=== PATIENT | female | born 1960 | race Caucasian/White ===

== ENCOUNTER 2023-11-27 16:58 | Emergency (ER) | payer BC, SELFPAY ==
[2023-11-27 17:04] VITALS: BP 166/91; BMI 19.8
--- NOTE | 2023-11-27 18:03 | ED.GENMED ---
Addendum entered and electronically signed by Brayan Patricia DO 12/07/23 15:46:
CLARIFICATION OF DIAGNOSIS: Periorbital edema of LEFT eye, conjunctivitis
Original Note:
History of Present Illness
General
Chief Complaint: Eye Problems
Time Seen by Provider: 11/27/23 18:03
History of Present Illness
History of Present Illness:
HPI: The patient presents with concerns at the left eye. She was diagnosed with corneal ulcer and treated with drops and then steroids. That improved but then she developed periorbital edema and was placed by her regulation supervisor on Augmentin that she
has had 48 hours of antibiotics. She was encouraged to come to the emergency department for further evaluation at that time as there was some concern for pupil abnormality.
EXAM:
GENERAL: Well appearing in no distress
HEENT: Moist oral mucosa, pupils are equally reactive directly and consensually, there is no evidence of orbital or periorbital cellulitis on examination however there is a mild left-sided periorbital edema
NEUROLOGIC: Excellent strength all extremities, no coordination deficits, normal finger-nose test
PSYCHIATRIC: Appropriate mental status, normal insight and judgement
EXTREMITIES: Nontender, no edema, moves all extremities equally
SKIN: No rash, no lesions
TIME OF INITIAL ENCOUNTER: 6:20 PM
NUMBER AND COMPLEXITY OF PROBLEMS ADDRESSED AT THE ENCOUNTER
� Chronic conditions affecting care: High blood pressure
� Acute Exacerbation and/or Progression of Chronic Illness: This is an acute problem
� Differential Diagnosis includes: Allergic reaction, related to treatment of corneal ulcer such as reaction to the drops no clear evidence for periorbital cellulitis based on physical examination, there is no pain with movement
of the extraocular muscles therefore doubt orbital cellulitis and she is afebrile
AMOUNT AND/OR COMPLEXITY OF DATA TO BE REVIEWED AND ANALYZED
� I performed an independent evaluation of and my interpretation is:
EKG:
CT:
X-rays:
Laboratory Studies:
Other:
� Review of other/old records: The patient was here in 2013 admitted for anemia
� Clinical information was obtained by an independent historian: None needed
� Prescriptions/Medications Considered but not given:
� Further testing considered but not performed: Considered admission for IV antibiotics as suggested by the regulation supervisor according to the primary however the patient is not really interested in any further evaluation as I am not
seeing any clear signs of need for IV antibiotics on physical examination.
RISK OF COMPLICATIONS AND/OR MORBIDITY OR MORTALITY OF PATIENT MANAGEMENT
� Social determinants of health affecting care: Lives at home
� Discussion with other providers:
� Escalation of care including admission/observation vs risk of discharge considered: We also talked about trying antihistamines and she will continue cool compresses. No evidence of orbital or periorbital cellulitis on
examination. I also suggest that she follows up with an business affairs manager.
Past History
Past History
ED Past Medical History: HTN
ED Past Surgical History: Gynecological
Social History
Tobacco: Non-smoker
Drug: None
Personal:
Phy Exam
Physical Exam
Physical Exam:
See HPI
Course
Vital Signs
Initial and Last Documented VS:
Initial Vital Signs
Temp Pulse Resp BP Pulse Ox
98.6 F 74 16 166/91 99
11/27/23 17:04 11/27/23 17:04 11/27/23 17:04 11/27/23 17:04 11/27/23 17:04
Last Documented Vital Signs
Temp Pulse Resp BP Pulse Ox
98.6 F 74 16 166/91 99
11/27/23 17:04 11/27/23 17:04 11/27/23 17:04 11/27/23 17:04 11/27/23 17:04
*Critical Care Note
Total Time (30-74mins, 75-104mins- exclusive of procedures): Not Applicable
ED Attending Note
-
Portions of this chart may have been created with voice recognition software.� Occasional wrong word or��sound alike� substitutions may have occurred due to the inherent limitations of voice recognition software.
Discharge Plan
Departure
Patient Disposition: Home (Routine Discharge)
Date of Disposition: 11/27/23
Time of Disposition: 18:16
Patient with high blood pressure during this ER visit?: Yes
Discharge Problem:
Periorbital edema of right eye, Conjunctivitis
Prescriptions:
No Action
fluconazole 150 MG tablet
150 mg PO DAILY Qty: 1 0RF
amoxicillin-pot clavulanate 1 TABLET tablet
1 tab PO Q12 Qty: 10 0RF
Referrals:
Jac Carlson MD [Active] - Follow up in 2-3 days
Activity Restrictions/Additional Instructions:
I do not see any clear signs of periorbital cellulitis or orbital cellulitis on physical examination at this time. Your temperature is normal. Continue Augmentin. I have also given the contact information for a local business affairs manager but you could
also check with the group that your regulation supervisor is with and see if they want to have an business affairs manager evaluate you as well. Your pupils are reacting appropriately.
Interventions
Interventions:
*Risk Screen - Suicide Last Done: 11/27/23 17:04
*General Assessment Last Done: 11/27/23 17:58
*Neglect/Abuse Screening Last Done: 11/27/23 17:04
*ED COVID-19 Vaccine History Last Done: 11/27/23 17:58
Discharge Date and Time
Print Language: GEORGIAN
== END 2023-11-27 18:37 | disposition home or self-care (01) ==
LOC: EMR 16:58
PROVIDERS: EMERGENCY PHYSICIAN Emergency Medicine; FAMILY PHYSICIAN Family Medicine
DX: H10.9 Unspecified conjunctivitis (principal); H05.222 Edema of left orbit; I10 Essential (primary) hypertension
CPT/HCPCS: 99282

== ENCOUNTER → 2025-03-13 16:07 | Outpatient (REF) | payer BC, SELFPAY | LOC: RCS 16:07 | PROVIDERS: ATTENDING PHYSICIAN Nuclear Medicine Nuclear Cardiology; FAMILY PHYSICIAN Family Medicine | DX: R00.2 Palpitations (principal); R06.02 Shortness of breath; R07.9 Chest pain, unspecified; R55 Syncope and collapse; I10 Essential (primary) hypertension; I34.0 Nonrheumatic mitral (valve) insufficiency; R94.31 Abnormal electrocardiogram [ECG] [EKG] | CPT/HCPCS: 93306 ==

== ENCOUNTER → 2025-03-20 12:49 | Outpatient (REF) | payer BC, SELFPAY | LOC: RCS 12:49 | PROVIDERS: ATTENDING PHYSICIAN Nuclear Medicine Nuclear Cardiology; FAMILY PHYSICIAN Family Medicine | DX: R00.2 Palpitations (principal); R06.02 Shortness of breath; R07.9 Chest pain, unspecified; R55 Syncope and collapse; I10 Essential (primary) hypertension; I34.0 Nonrheumatic mitral (valve) insufficiency; R94.31 Abnormal electrocardiogram [ECG] [EKG] | CPT/HCPCS: 93017; 93350 ==